=== PATIENT | female | born 1970 | race Caucasian/White ===

== ENCOUNTER → 2017-05-30 | Outpatient (CLI) | payer BC ==
--- NOTE | 2017-05-30 15:46 | CT ---
HISTORY: Headache. Study: CT brain without contrast. Comparison: None. Technique: Multiple axial images of the brain were obtained from the skull base to the vertex without administra tion of IV contrast. Findings: No acute intraparenchymal hemorrhage or mass can be identified. No extra-axial fluid collections are seen. No alteration in the attenuation of the brain parenchyma can be identified to suggest acute o r subacute ischemic change. The ventricular system is symmetric and nondilated. The visualized porti ons of the paranasal sinuses and mastoid air cells are normally developed and well-aerated bilaterall y. The extracranial structures are grossly unremarkable. IMPRESSION: No acute intracranial process can be identified. Reported By:
--- NOTE | 2017-05-30 15:49 | CT ---
HISTORY: Headache. Study: CT paranasal sinuses without contrast. Comparison: None. Technique: Multiple axial images of the paranasal sinuses were obtained without the administration of IV contrast. Coronal and sagittal reformats were performed and reviewed. Findings: The maxillary sinuses, anterior and posterior ethmoid air cells, sphenoid sinuses, and frontal sinuse s demonstrate no evidence for mucosal inflammatory disease. The nasal septum is midline. The ostiom eatal unit on the right and left are widely patent without inflammatory change. The frontoethmoidal and sphenoethmoidal recesses are patent bilaterally. Visualized portions of the posterior fossa and intracranial structures are unremarkable as well. IMPRESSION: Unremarkable CT of the paranasal sinuses. Reported By:
== END ==
LOC: RAD 14:32
PROVIDERS: ATTEND Internal Medicine
DX: J01.80 Other acute sinusitis (principal); R51 Headache
CPT/HCPCS: 70450; 70486